=== PATIENT | female | born 1995 | race Two or more races ===

== ENCOUNTER 2020-02-19 08:52 | Outpatient (CLI) | payer MEDICAID ==
[~2020-02-19] VITALS: Ht 165.1 cm; Wt 69.9 kg
[2020-02-19 12:32] VITALS: BP 114/68
--- NOTE | 2020-02-23 20:30 | Consultation ---
DATE OF CONSULTATION: 02/18/2020 GASTROLOGY CONSULTATION CHIEF COMPLAINT: Abdominal pain. HISTORY OF PRESENT ILLNESS: This is a very pleasant 24-year-old female with questionable history of IBS. She has been having some nausea, mainly deep fried foods, also fatty foods, complained of bloating, gas, abdominal distention, was referred for evaluation. PAST MEDICAL HISTORY: None. PAST SURGICAL HISTORY: None. MEDICATIONS: None. FAMILY HISTORY: Mother had lung cancer. SOCIAL HISTORY: The patient denies any tobacco, alcohol, or drug abuse. REVIEW OF SYSTEMS: A 10-point review of systems was performed and pertinent positives are per HPI. PHYSICAL EXAMINATION: VITAL SIGNS: Temperature 98.2, blood pressure 114/58, pulse is 75, respirations 20. HEENT: Normocephalic, atraumatic. Sclerae anicteric. NECK: Supple. No evidence of obvious lymphadenopathy. CARDIOVASCULAR: Regular rate and rhythm. Plus S1, S2. LUNGS: Clear to auscultation bilaterally. ABDOMEN: Positive bowel sounds. Soft and nontender. No rebound. No guarding. No peritoneal sign. EXTREMITIES: No cyanosis, no clubbing, no edema. ASSESSMENT AND PLAN: This is a 29-year-old female with signs and symptoms questionable for gallstones. Also has bloating. Differential diagnosis would be celiac disease versus SIBO. Plan is to order abdominal ultrasound, order celiac panel. Start the patient on Xifaxan, followed by Align. The patient is to come back after the above. Jared Lee M.D. DR: BENJI JOB#: [id number] CC:
== END 2020-02-19 10:52 | disposition home or self-care (01) ==
LOC: PAN 08:52
DX: R10.9 Unspecified abdominal pain (principal); R11.0 Nausea; R14.0 Abdominal distension (gaseous); Z80.1 Family history of malignant neoplasm of trachea, bronchus and lung
CPT/HCPCS: G0463

== ENCOUNTER 2020-02-27 12:51 | Outpatient (CLI) | payer MEDICAID ==
--- NOTE | 2020-02-27 13:06 | General Progress Note ---
Subjective ROS Limited/Unobtainable: Yes Allergies: Coded Allergies: No Known Allergies (Unverified , 02/21/20) Objective General Appearance: alert EENT: normal ENT inspection Neck: supple Cardiovascular: normal rate Respiratory/Chest: decreased breath sounds Abdomen: normal bowel sounds, non tender, soft Extremities: non-tender Assessment/Plan Assessment/Plan: neg celiac panel lázaro liver no gallstones on xifaxan RTC prn Jared Lee MD Feb 27, 2020 13:06
== END 2020-02-27 15:18 | disposition home or self-care (01) ==
LOC: PAN 12:51
DX: K76.0 Fatty (change of) liver, not elsewhere classified (principal)
CPT/HCPCS: 99212